=== PATIENT | female | born 1940 | race Caucasian/White ===

== ENCOUNTER 2022-06-10 16:13 | Emergency (ER) | payer MEDICARE, OTHER, SELFPAY ==
--- NOTE | ~2022-06-10 | CT_ITS ---
EXAMINATION: CT ANGIOGRAM NECK CLINICAL INFORMATION: Atraumatic neck pain rule out dissection COMPARISON: None. TECHNIQUE: Test bolus sequences followed by intravenous administration 70 mL of Omnipaque 350. Helical imaging was performed in the axial plane from the aortic arch to the skull base. The data was processed at the optometric technologist's workstation for generation of MIP sequences. Angled MIPs and volume rendered reformatted images were also generated at an offline 3D workstation. Stenoses are assessed in accordance with Stenoses are assessed in accordance with Miguel et al. Quantification of Carotid Stenosis on CT Angiography. AJR 2006. 27(1):13-19. This CT examination was performed using dose optimization techniques as appropriate, variously including the following: *Automated exposure control *Adjustment of mA and/or kV according to patient size (this includes techniques or standardized protocols for targeted exams where dose is matched to indication/reason for exam; i.e. extremities or head) *Use of iterative reconstruction technique DLP: 577.03 mGy-cm mGy-cm FINDINGS: CTA NECK: Classic 3 vessel branching pattern of the aortic arch. There is mild fibrofatty and calcified plaque at the aortic arch. Minimal atherosclerosis of the carotid bifurcations with widely patent internal carotid artery origins with normal opacification along the remainder of their cervical segments. The carotid bifurcations and bilateral internal carotid arteries are normal. The vertebral arteries are codominant The vertebral artery ostia are widely patent. There is mild luminal narrowing of the right V2 segment at C5-C6 related to adjacent uncovertebral and facet joint hypertrophy. Otherwise both vertebral arteries are widely patent throughout their extracranial cervical course. Extradural origin of the bilateral posterior inferior cerebellar arteries. There is mild calcified plaque along the bilateral supraclinoid internal carotid arteries without significant luminal narrowing. The imaged intracranial arterial vasculature is widely patent. The imaged dural venous sinuses opacify normally. CT NECK: Periapical lucency associated with the palatal root of the left maxillary second molar tooth with contiguous thin curvilinear lucency extending superiorly and suspected focal osseous dehiscence into the floor of the left maxillary sinus, which may predispose to odontogenic disease. 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 The epiglottis is curved anteriorly projecting into the vallecula. Biapical pleural-parenchymal scarring. There is periarticular mineralization about the anterior atlantodental articulation with multilevel mineralization of the intervertebral discs and ligamentum flavum which may reflect calcium pyrophosphate dihydrate disease (CPPD or pseudogout), which may be a cause of acute neck pain in the elderly. There is also multilevel cervical spondylosis contributing to at least mild spinal canal stenosis at C5-C6 with encroachment upon the ventral cord and severe right C5-C6 neural foraminal stenosis. CT/CT angio neck IMPRESSION: 1. No evidence of arterial dissection involving the cervical arterial vasculature. 2. Periapical lucency associated with the palatal root of the left maxillary second molar tooth with suspected focal osseous dehiscence into the floor of the left maxillary sinus, which may predispose to odontogenic disease. 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 3. Periarticular mineralization about the anterior atlantodental articulation with multilevel mineralization of the intervertebral discs and ligamentum flavum which may reflect calcium pyrophosphate dihydrate disease (CPPD or pseudogout), which may be a cause of neck pain in the elderly. There is also multilevel cervical spondylosis contributing to at least mild spinal canal stenosis at C5-C6 with encroachment upon the ventral cord and severe right C5-C6 neural foraminal stenosis. If there is referrable myelopathy/radiculopathy, further evaluation of these findings with dedicated cervical spine MRI may be performed as clinically warranted.
[2022-06-10 16:17] VITALS: BP 188/84; PULSE 94; RESP 18; TEMP 36.8; O2SAT 99; BMI 21.2
--- NOTE | 2022-06-10 16:19 | ED_ITS ---
HPI - General Adult General Chief complaint: General Medical <Randal Devlin - Last Filed: 06/10/22 16:20> Stated complaint: Neck pain times 4days, <Randal Devlin - Last Filed: 06/10/22 16:20> Time Seen by Provider: 06/10/22 16:35 <Randal Devlin - Last Filed: 06/10/22 16:20> History of Present Illness HPI narrative: Patient complains of severe neck pain without any trauma which began 5 days ago, she did fall asleep in the car the day before during long drive and thinks maybe she somehow strained it, but pain has been slowly increasing over the last several days and now she cannot find a comfortable position There is no headache, there is no numbness weakness or tingling shooting down the arms there is no muscle weakness there is no headache there is no fever no chills, pain is rated 10/10, no changes to bowel or bladder <LEILANI Watson - Last Filed: 06/10/22 18:58> Related Data Home medications: Previous Rx's Medication Instructions Recorded cyclobenzaprine 10 mg tablet 10 mg PO Q8H #20 tabs 06/10/22 tramadol 50 mg tablet 50 mg PO Q6H PRN pain #20 tabs 06/10/22 <Randal Devlin - Last Filed: 06/10/22 16:20> Allergies/adverse reactions: Allergies Allergy/AdvReac Type Severity Reaction Status Date / Time Penicillins [PCN] Allergy Rash Verified 06/10/22 16:20 Sulfa (Sulfonamide Allergy Rash Verified 06/10/22 16:20 Antibiotics) <Randal Devlin - Last Filed: 06/10/22 16:20> [facility] Past Medical History Source: nursing notes reviewed <LEILANI Watson - Last Filed: 06/10/22 18:58> Social History Social History: Social History Advance Directives: No Advance Directives Information Provided: No <Randal Devlin - Last Filed: 06/10/22 16:20> Physical Exam ED Vital Signs: Vital Signs - 24 hr 06/10/22 16:17 06/10/22 19:06 06/10/22 21:12 Temperature 98.3 F 98.1 F 98.8 F Pulse Rate 94 59 67 Respiratory Rate 18 20 16 Blood Pressure 188/84 H 147/53 H 144/52 H Pulse Oximetry 99 97 97 Oxygen Delivery Method Room Air Room Air Room Air BMI result Body Mass Index 21.2 <Randal Devlin - Last Filed: 06/10/22 16:20> Vital Signs - 24 hr 06/10/22 16:17 06/10/22 19:06 06/10/22 21:12 Temperature 98.3 F 98.1 F 98.8 F Pulse Rate 94 59 67 Respiratory Rate 18 20 16 Blood Pressure 188/84 H 147/53 H 144/52 H Pulse Oximetry 99 97 97 Oxygen Delivery Method Room Air Room Air Room Air BMI result Body Mass Index 21.2 <LEILANI Watson - Last Filed: 06/10/22 18:58> Vital Signs - 24 hr 06/10/22 16:17 06/10/22 19:06 06/10/22 21:12 Temperature 98.3 F 98.1 F 98.8 F Pulse Rate 94 59 67 Respiratory Rate 18 20 16 Blood Pressure 188/84 H 147/53 H 144/52 H Pulse Oximetry 99 97 97 Oxygen Delivery Method Room Air Room Air Room Air BMI result Body Mass Index 21.2 <Soren Freeman MD - Last Filed: 06/10/22 23:39> General appearance very uncomfortable crying Head is normocephalic atraumatic Pupils equal round reactive to light Extraocular motions intact The neck had diffuse posterior tenderness no anterior tenderness, pain is worsened with movement but is present at rest The chest is clear to auscultation bilateral Heart no murmur The abdomen soft nontender Extremities full range of motion x4 neck Neuro no focal motor sensory deficits, cranial nerves 2-12 intact as tested no f acial asymmetry, gait and balance are normal, 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 She saw her PCP Monday morning and was given prednisone and baclofen with a improved. She was skiing last Monday but denies any major falls. She was sleeping in a car on the way home of her neck an awkward position and she believes that may have contributed to her pain. <Randal Devlin - Last Filed: 06/10/22 16:20> 82-year-old female presents for evaluation of neck pain. She saw her PCP Monday morning and was given prednisone and baclofen with a improved. She was skiing last Monday but denies any major falls. She was sleeping in a car on the way home of her neck an awkward position and she believes that may have contributed to her pain. Patient extremely uncomfortable on arrival had pain relieved with IV morphine, she was able to walk around the department, but it did make her somewhat dizzy She has no neurologic deficit or headache On further discussion of the patient it was decided to get a CTA to rule out any aneurysm or dissection for this severe neck pain not related to trauma CTA pending case was signed out to Dr. Odell who will follow the case, re- evaluate and dispo the patient <LEILANI Watson - Last Filed: 06/10/22 18:58> Medications Administered Generic Name Dose Route Start Last Admin Trade Name Freq PRN Reason Stop Dose Admin Morphine Sulfate 2 mg 06/10/22 18:52 06/10/22 21:14 Morphine Sulfate 2 Mg/Ml Cartridge IVPUSH 2 mg Q5M PRN Administration Chest Pain Protocol Discontinued Medications Generic Name Dose Route Start Last Admin Trade Name Freq PRN Reason Stop Dose Admin Iohexol 100 ml 06/10/22 20:13 06/10/22 20:13 Iohexol 350 Mg/Ml 100 Ml Infus..Btl IV 06/10/22 20:14 70 ml ONCE ONE Administration Morphine Sulfate 4 mg 06/10/22 16:57 06/10/22 17:09 Morphine Sulfate 4 Mg/Ml Cartridge IVPUSH 06/10/22 16:58 4 mg ONCE ONE Administration Protocol Morphine Sulfate 4 mg 06/10/22 17:30 06/10/22 17:47 Morphine Sulfate 4 Mg/Ml Cartridge IVPUSH 06/10/22 17:31 4 mg ONCE ONE Administration Protocol <Randal Devlin - Last Filed: 06/10/22 16:20> Medications Administered Generic Name Dose Route Start Last Admin Trade Name Freq PRN Reason Stop Dose Admin Morphine Sulfate 2 mg 06/10/22 18:52 06/10/22 21:14 Morphine Sulfate 2 Mg/Ml Cartridge IVPUSH 2 mg Q5M PRN Administration Chest Pain Protocol Discontinued Medications Generic Name Dose Route Start Last Admin Trade Name Freq PRN Reason Stop Dose Admin Iohexol 100 ml 06/10/22 20:13 06/10/22 20:13 Iohexol 350 Mg/Ml 100 Ml Infus..Btl IV 06/10/22 20:14 70 ml ONCE ONE Administration Morphine Sulfate 4 mg 06/10/22 16:57 06/10/22 17:09 Morphine Sulfate 4 Mg/Ml Cartridge IVPUSH 06/10/22 16:58 4 mg ONCE ONE Administration Protocol Morphine Sulfate 4 mg 06/10/22 17:30 06/10/22 17:47 Morphine Sulfate 4 Mg/Ml Cartridge IVPUSH 06/10/22 17:31 4 mg ONCE ONE Administration Protocol <LEILANI Watson - Last Filed: 06/10/22 18:58> Medications Administered Generic Name Dose Route Start Last Admin Trade Name Freq PRN Reason Stop Dose Admin Morphine Sulfate 2 mg 06/10/22 18:52 06/10/22 21:14 Morphine Sulfate 2 Mg/Ml Cartridge IVPUSH 2 mg Q5M PRN Administration Chest Pain Protocol Discontinued Medications Generic Name Dose Route Start Last Admin Trade Name Freq PRN Reason Stop Dose Admin Iohexol 100 ml 06/10/22 20:13 06/10/22 20:13 Iohexol 350 Mg/Ml 100 Ml Infus..Btl IV 06/10/22 20:14 70 ml ONCE ONE Administration Morphine Sulfate 4 mg 06/10/22 16:57 06/10/22 17:09 Morphine Sulfate 4 Mg/Ml Cartridge IVPUSH 06/10/22 16:58 4 mg ONCE ONE Administration Protocol Morphine Sulfate 4 mg 06/10/22 17:30 06/10/22 17:47 Morphine Sulfate 4 Mg/Ml Cartridge IVPUSH 06/10/22 17:31 4 mg ONCE ONE Administration Protocol <Soren Freeman MD - Last Filed: 06/10/22 23:39> Medical Decision Making Lab Data MDM Lab Attestation statement: I reviewed the patient's lab results. <Soren Freeman MD - Last Filed: 06/10/22 23:39> Result Diagrams: 06/10/22 19:03 06/10/22 19:03 <Randal Devlin - Last Filed: 06/10/22 16:20> Labs: Lab Results 06/10/22 06/10/22 Range/Units 19:03 19:03 WBC 12.4 H (4.8-10.8) X10*3/uL RBC 4.24 (4.20-5.50) X10*6/uL Hgb 11.9 L (12.0-16.0) g/dl Hct 36.8 L (37.0-47.0) % MCV 86.8 (80.0-98.0) fL MCH 28.1 (27.0-33.0) pg MCHC 32.3 (31.0-35.0) g/dl RDW 12.8 (11.0-16.0) % Plt Count 261 (160-400) X10*3/uL MPV 9.9 (9.4-12.3) fL Immature Gran % (Auto) 0.3 (0.0-0.4) % Neut % (Auto) 76.3 H (45-73) % Lymph % (Auto) 15.3 L (20-40) % [place] % (Auto) 7.0 (2-11) % Eos % (Auto) 0.6 (0-4) % Baso % (Auto) 0.5 (0-2) % Lymph # (Auto) 1.9 (1.2-4.9) X10*3/uL [place] # (Auto) 0.9 (0.1-1.2) X10*3/uL Eos # (Auto) 0.1 (0.0-0.4) X10*3/uL Baso # (Auto) 0.1 (0.0-0.2) X10*3/uL Abs Immat Gran (auto) 0.04 H (0.00-0.03) X10*3/uL Absolute Neuts (auto) 9.5 H (2.0-8.3) x10*3/uL Absolute Nucleated RBC 0.000 (0.0-0.012) X10*3/uL Nucleated RBC % (auto) 0.0 (0.0-0.2) /100WBC Sodium 143 (135-145) mmol/L Potassium 4.1 (3.3-5.1) mmol/L Chloride 109 H (96-108) mmol/L Carbon Dioxide 26 (22-29) mmol/L Anion Gap 12 (12-20) BUN 23 H (9-16) mg/dL Creatinine 0.91 (0.5-1.4) mg/dL Estim Creat Clear Calc 39.4 Estimated GFR 59 Random Glucose 101 (60-115) mg/dL Calcium 9.3 (8.4-10.2) mg/dL <Randal Devlin - Last Filed: 06/10/22 16:20> Lab Results 06/10/22 06/10/22 Range/Units 19:03 19:03 WBC 12.4 H (4.8-10.8) X10*3/uL RBC 4.24 (4.20-5.50) X10*6/uL Hgb 11.9 L (12.0-16.0) g/dl Hct 36.8 L (37.0-47.0) % MCV 86.8 (80.0-98.0) fL MCH 28.1 (27.0-33.0) pg MCHC 32.3 (31.0-35.0) g/dl RDW 12.8 (11.0-16.0) % Plt Count 261 (160-400) X10*3/uL MPV 9.9 (9.4-12.3) fL Immature Gran % (Auto) 0.3 (0.0-0.4) % Neut % (Auto) 76.3 H (45-73) % Lymph % (Auto) 15.3 L (20-40) % [place] % (Auto) 7.0 (2-11) % Eos % (Auto) 0.6 (0-4) % Baso % (Auto) 0.5 (0-2) % Lymph # (Auto) 1.9 (1.2-4.9) X10*3/uL [place] # (Auto) 0.9 (0.1-1.2) X10*3/uL Eos # (Auto) 0.1 (0.0-0.4) X10*3/uL Baso # (Auto) 0.1 (0.0-0.2) X10*3/uL Abs Immat Gran (auto) 0.04 H (0.00-0.03) X10*3/uL Absolute Neuts (auto) 9.5 H (2.0-8.3) x10*3/uL Absolute Nucleated RBC 0.000 (0.0-0.012) X10*3/uL Nucleated RBC % (auto) 0.0 (0.0-0.2) /100WBC Sodium 143 (135-145) mmol/L Potassium 4.1 (3.3-5.1) mmol/L Chloride 109 H (96-108) mmol/L Carbon Dioxide 26 (22-29) mmol/L Anion Gap 12 (12-20) BUN 23 H (9-16) mg/dL Creatinine 0.91 (0.5-1.4) mg/dL Estim Creat Clear Calc 39.4 Estimated GFR 59 Random Glucose 101 (60-115) mg/dL Calcium 9.3 (8.4-10.2) mg/dL <LEILANI Watson - Last Filed: 06/10/22 18:58> Lab Results 06/10/22 06/10/22 Range/Units 19:03 19:03 WBC 12.4 H (4.8-10.8) X10*3/uL RBC 4.24 (4.20-5.50) X10*6/uL Hgb 11.9 L (12.0-16.0) g/dl Hct 36.8 L (37.0-47.0) % MCV 86.8 (80.0-98.0) fL MCH 28.1 (27.0-33.0) pg MCHC 32.3 (31.0-35.0) g/dl RDW 12.8 (11.0-16.0) % Plt Count 261 (160-400) X10*3/uL MPV 9.9 (9.4-12.3) fL Immature Gran % (Auto) 0.3 (0.0-0.4) % Neut % (Auto) 76.3 H (45-73) % Lymph % (Auto) 15.3 L (20-40) % [place] % (Auto) 7.0 (2-11) % Eos % (Auto) 0.6 (0-4) % Baso % (Auto) 0.5 (0-2) % Lymph # (Auto) 1.9 (1.2-4.9) X10*3/uL [place] # (Auto) 0.9 (0.1-1.2) X10*3/uL Eos # (Auto) 0.1 (0.0-0.4) X10*3/uL Baso # (Auto) 0.1 (0.0-0.2) X10*3/uL Abs Immat Gran (auto) 0.04 H (0.00-0.03) X10*3/uL Absolute Neuts (auto) 9.5 H (2.0-8.3) x10*3/uL Absolute Nucleated RBC 0.000 (0.0-0.012) X10*3/uL Nucleated RBC % (auto) 0.0 (0.0-0.2) /100WBC Sodium 143 (135-145) mmol/L Potassium 4.1 (3.3-5.1) mmol/L Chloride 109 H (96-108) mmol/L Carbon Dioxide 26 (22-29) mmol/L Anion Gap 12 (12-20) BUN 23 H (9-16) mg/dL Creatinine 0.91 (0.5-1.4) mg/dL Estim Creat Clear Calc 39.4 Estimated GFR 59 Random Glucose 101 (60-115) mg/dL Calcium 9.3 (8.4-10.2) mg/dL <Soren Freeman MD - Last Filed: 06/10/22 23:39> Radiology Impression Discussion of test interpretation with radiology: I have reviewed the radiologist's reading. <Soren Freeman MD - Last Filed: 06/10/22 23:39> Radiologist Impression: CT/CT angio neck IMPRESSION: 1.? No evidence of arterial dissection involving the cervical arterial vasculature. 2.? Periapical lucency associated with the palatal root of the left maxillary second molar tooth with suspected focal osseous dehiscence into the floor of the left maxillary sinus, which may predispose to odontogenic disease. 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 3.? Periarticular mineralization about the anterior atlantodental articulation with multilevel mineralization of the intervertebral discs and ligamentum flavum which may reflect calcium pyrophosphate dihydrate disease (CPPD or pseudogout), which may be a cause of neck pain in the elderly. There is also multilevel cervical spondylosis contributing to at least mild spinal canal stenosis at C5-C6 with encroachment upon the ventral cord and severe right C5-C6 neural foraminal stenosis. If there is referrable myelopathy/radiculopathy, further evaluation of these findings with dedicated cervical spine MRI may be performed as clinically warranted. <Soren Freeman MD - Last Filed: 06/10/22 23:39> Discharge Plan Discharge Clinical Impression: Cervical spinal stenosis <Randal Devlin - Last Filed: 06/10/22 16:20> Patient Disposition: Home, Self-Care <Randal Devlin - Last Filed: 06/10/22 16:20> Instructions: Cervical Spinal Stenosis (ED) <Randal Devlin - Last Filed: 06/10/22 16:20> Additional Instructions: Pain medication as prescribed Follow-up with Neurosurgery for further management <Randal Deviln - Last Filed: 06/10/22 16:20> Prescriptions: New cyclobenzaprine 10 mg tablet 10 mg PO Q8H Qty: 20 0RF tramadol 50 mg tablet 50 mg PO Q6H PRN (Reason: pain) Qty: 20 0RF <Randal Devlin - Last Filed: 06/10/22 16:20> Referrals: Sofia Guillaume MD [Physician] - 1 week <Randal Devlin - Last Filed: 06/10/22 16:20>
[2022-06-10] MEDS: Morphine Sulfate 4 MG/ML CARTRIDGE IVPUSH ×2 (17:09→17:47)
[2022-06-10 19:06] VITALS: BP 147/53; PULSE 59; RESP 20; TEMP 36.7; O2SAT 97
[2022-06-10 19:07] LABS: MANUAL DIFF FLAG NO
[2022-06-10] MEDS: Morphine Sulfate 2 MG/ML CARTRIDGE IVPUSH ×2 (19:08→21:14)
[2022-06-10 19:09] LABS: Basophils Absolute Auto 0.1 X10*3/uL (0.0-0.2); Basophils Percent Auto 0.5 % (0-2); Eosinophils Absolute Auto 0.1 X10*3/uL (0.0-0.4); Eosinophils Percent Auto 0.6 % (0-4); Hematocrit 36.8 % (37.0-47.0); Hemoglobin 11.9 g/dl (12.0-16.0); Imm Gran Abs Auto 0.04 X10*3/uL (0.00-0.03); Imm Gran Pct Auto 0.3 % (0.0-0.4); Lymphocytes Absolute Auto 1.9 X10*3/uL (1.2-4.9); Lymphocytes Percent Auto 15.3 % (20-40); Mean Corpuscular HGB Conc 32.3 g/dl (31.0-35.0); Mean Corpuscular Hemoglobin 28.1 pg (27.0-33.0); Mean Corpuscular Volume 86.8 fL (80.0-98.0); Mean Platelet Volume 9.9 fL (9.4-12.3); Monocytes Absolute Auto 0.9 X10*3/uL (0.1-1.2); Neutrophils Absolute Auto 9.5 x10*3/uL (2.0-8.3); Neutrophils Percent Auto 76.3 % (45-73); Platelet Count 261 X10*3/uL (160-400); Red Blood Count 4.24 X10*6/uL (4.20-5.50); Red Cell Distribution Width 12.8 % (11.0-16.0); White Blood Count 12.4 X10*3/uL (4.8-10.8)
[2022-06-10 19:24] LABS: Anion Gap 12 (12-20); Blood Urea Nitrogen 23 mg/dL (9-16); Calcium 9.3 mg/dL (8.4-10.2); Carbon Dioxide 26 mmol/L (22-29); Chloride 109 mmol/L (96-108); Creatinine Clr Calc Pharmacy 39.4; Estimated Glomerular Filt Rate 59; Glucose Random 101 mg/dL (60-115); Potassium 4.1 mmol/L (3.3-5.1); Sodium 143 mmol/L (135-145)
[2022-06-10] MEDS: iohexoL 350 MG/ML 100 ML INFUS..BTL IV (20:13)
[2022-06-10 21:12] VITALS: BP 144/52; PULSE 67; RESP 16; TEMP 37.1; O2SAT 97
[2022-06-10 23:30] VITALS: BP 152/61; PULSE 76; RESP 18; O2SAT 98
--- NOTE | 2022-06-11 00:04 | PC.NURSE ---
campus administrative assistant to bedside for vitals and medication administration. As RN popped the medication in the med cup the pt was noted to vomit up the water she had previously drank. MD aware and new orders obtained. remains at bedside, pt appears to be less anxious and more calm at this time.
[2022-06-11] MEDS: Ondansetron ODT 4 MG TAB.RAPDIS TRANSLINGU (00:12)
[2022-06-11] MEDS: traMADoL HCL 50 MG TABLET PO (00:30)
--- NOTE | 2022-06-11 00:30 | PC.NURSE ---
Pt reports resolution in nausea s/p previous odt zofran admin. pt remains with baseline mentation and medicated with tramadol per order
== END 2022-06-11 00:35 | disposition home or self-care (01) ==
PROVIDERS: Physician Assistant Medical; Emergency Provider Internal Medicine; PCP Internal Medicine
DX: M48.02 Spinal stenosis, cervical region (principal); M54.2 Cervicalgia; R51.9 Headache, unspecified; Z79.899 Other long term (current) drug therapy
CPT/HCPCS: 36415; 70498; 80048; 85025; 96374; 96376; 99284; J2270; Q9967